=== PATIENT | female | born 1995 | race Caucasian/White ===

== ENCOUNTER 2021-07-11 17:28 | Outpatient (CLI) | payer OTHER | END 2021-07-12 10:01 | disposition home or self-care (01) | LOC: OBS/DEL 17:28 | PROVIDERS: ATTEND Obstetrics & Gynecology | DX: O26.892 Other specified pregnancy related conditions, second trimester (principal); R10.2 Pelvic and perineal pain; Z3A.20 20 weeks gestation of pregnancy ==

== ENCOUNTER 2021-09-30 18:44 | Outpatient (CLI) | payer OTHER ==
[2021-09-30] MEDS ORDERED: PRENATAL TABLE1 EAC1 PO (20:14)
[2021-09-30] MEDS ORDERED: ADULT LOW DOSE81 M1 PO (20:15)
== END 2021-10-01 12:45 | disposition home or self-care (01) ==
LOC: OBS/DEL 18:44
PROVIDERS: ATTEND Obstetrics & Gynecology
DX: O26.893 Other specified pregnancy related conditions, third trimester (principal); K52.89 Other specified noninfective gastroenteritis and colitis; Z3A.32 32 weeks gestation of pregnancy

== ENCOUNTER 2021-11-21 05:40 | Inpatient (IN) | payer OTHER ==
[~2021-11-21] VITALS: Ht 160 cm; Wt 3.6 kg
[~2021-11-21 05:40] MED LIST: ADULT LOW DOSE81 M1 PO; PRENATAL TABLE1 EAC1 PO
[2021-11-21] MEDS ORDERED: ATABEX OB TABL1 EACH (09:47)
== END 2021-11-24 13:55 | disposition home or self-care (01) | DRG 788 ==
LOC: OB/GYN 05:40 → LDR 05:40 → OB/GYN 17:15
PROVIDERS: ADMIT Obstetrics & Gynecology; ATTEND Obstetrics & Gynecology
PROC: 4A1HXFZ Monitoring of Products of Conception, Cardiac Rhythm, External Approach (ICD-10-PCS; 2021-11-21)
PROC: 10D00Z1 Extraction of Products of Conception, Low, Open Approach (ICD-10-PCS; principal; 2021-11-21 16:00)
DX: O62.1 Secondary uterine inertia (principal); Z37.0 Single live birth; Z3A.40 40 weeks gestation of pregnancy

== ENCOUNTER 2021-11-30 08:00 | Outpatient (CLI) | payer OTHER ==
[~2021-11-30 08:00] MED LIST changes: +ATABEX OB TABL1 EACH
== END 2021-11-30 08:30 | disposition home or self-care (01) ==
LOC: PPH VACUNA 08:00
PROVIDERS: ATTEND Emergency Medicine Pediatric Emergency Medicine
DX: Z23 Encounter for immunization (principal)